=== PATIENT | male | born 1995 | race Caucasian/White ===

== ENCOUNTER 2017-03-01 13:27 | Inpatient (IN) | payer OTHER ==
[~2017-03-01] VITALS: Ht 175.2 cm; Wt 72.6 kg
--- NOTE | ~2017-03-01 | EKG ---
[place], [place] ELECTROCARDIOGRAM REPORT NAME: JUVENTINO HARRINGTON UNIT #: [id number] ROOM: 401 DOCTOR: ECHO KESSLER MD BIRTHDATE: [birth year] DOS: 03/01/2017 TIME: 1352 hours. Normal sinus rhythm at 60 beats per minute. The tracing is normal. No previous tracing is available for comparison. ECHO KESSLER MD CM:EKGRPT:ELECTROCARDIOGRAM REPORT [id number] ECHO KESSLER MD
[~2017-03-01 13:27] MED LIST: ATARAX25 MG PO; PREDNICOT20 MG PO
[2017-03-01 13:38] VITALS: BP 130/76
[2017-03-01 14:02] LABS: BASO # 0.1 10*3/uL (0.0-0.1); EOS # 0.5 10*3/uL (0.0-0.4); EOS % 4.5 % (1.0-4.0); HEMATOCRIT 42.8 % (42.0-52.0); HEMOGLOBIN 14.4 g/dl (14.0-18.0); LYMPH # 3.1 10*3/uL (1.3-4.4); LYMPH % 28.4 % (27.0-41.0); MEAN CELL VOLUME 90.5 fl (80.0-94.0); MEAN CORPUSCULAR HGB 30.4 pg (27.0-31.0); MEAN CORPUSCULAR HGB CONC 33.6 g/dl (33.0-37.0); MEAN PLATELET VOLUME 10.8 fl (9.6-12.3); MONO # 0.8 10*3/uL (0.1-1.0); MONO % 7.6 % (3.0-9.0); NEUT # 6.4 10*3/uL (2.3-7.9); NEUT % 58.2 % (47.0-73.0); PLATELET COUNT AUTOMATED 222 10*3/uL (130-400); RED BLOOD COUNT 4.73 10*6/uL (4.50-5.90); RED CELL DISTRI WIDTH 12.9 % (0-14.5)
[2017-03-01 14:16] LABS: ALBUMIN 3.7 gm/dl (3.1-4.5); ALKALINE PHOSPHATASE 70 U/L (45-117); BILIRUBIN, TOTAL 0.4 mg/dl (0.2-1.0); BUN 8 mg/dl (7-24); CARBON DIOXIDE 29 mmol/L (21-32); CHLORIDE 110 mmol/L (98-107); EST GLOM FILT AFRICAN AMERICAN > 60 ml/min; GLUCOSE 91 mg/dL (65-99); SGOT/AST 15 IU/L (3-35); SGPT/ALT 18 U/L (12-78); SODIUM 143 mmol/L (136-145); TOTAL PROTEIN 6.6 gm/dL (6.4-8.2)
[2017-03-01 14:34] LABS: URINE AMPHETAMINES < 1000 (1000ng/ml); URINE BARBITURATES < 200 (200ng/ml); URINE COCAINE < 300 (300ng/ml)
[2017-03-01 16:42] VITALS: BP 133/69
[2017-03-01 20:00] VITALS: BP 124/51
[2017-03-02] VITALS: BP 107/57
[2017-03-02 04:00] VITALS: BP 108/56
[2017-03-02 08:00] VITALS: BP 101/48
[2017-03-02 12:00] VITALS: BP 103/53
[2017-03-02 16:00] VITALS: BP 104/48
[2017-03-02 20:00] VITALS: BP 106/58
[2017-03-03] VITALS: BP 103/45
[2017-03-03 08:00] VITALS: BP 115/57
[2017-03-03 12:00] VITALS: BP 114/48
[2017-03-03 16:00] VITALS: BP 100/44
[2017-03-03 20:00] VITALS: BP 136/40
[2017-03-04] VITALS: BP 123/62
[2017-03-04 06:23] LABS: BASO # 0.1 10*3/uL (0.0-0.1); BASO % 0.8 % (0.0-1.0); EOS # 0.7 10*3/uL (0.0-0.4); EOS % 6.8 % (1.0-4.0); HEMATOCRIT 40.6 % (42.0-52.0); HEMOGLOBIN 13.4 g/dl (14.0-18.0); LYMPH # 3.9 10*3/uL (1.3-4.4); LYMPH % 40.1 % (27.0-41.0); MEAN CELL VOLUME 92.1 fl (80.0-94.0); MEAN CORPUSCULAR HGB 30.4 pg (27.0-31.0); MEAN PLATELET VOLUME 11.3 fl (9.6-12.3); MONO # 0.7 10*3/uL (0.1-1.0); MONO % 7.2 % (3.0-9.0); NEUT # 4.3 10*3/uL (2.3-7.9); NEUT % 44.9 % (47.0-73.0); PLATELET COUNT AUTOMATED 184 10*3/uL (130-400); RED BLOOD COUNT 4.41 10*6/uL (4.50-5.90); RED CELL DISTRI WIDTH 12.7 % (0-14.5); WHITE BLOOD COUNT 9.6 10*3/uL (4.8-10.8)
[2017-03-04 06:53] LABS: EST GLOM FILT AFRICAN AMERICAN > 60 ml/min
[2017-03-04 08:00] VITALS: BP 106/48
[2017-03-04] MEDS ORDERED: ATARAX,VISTARIL50 MG PO (13:28)
[2017-03-04] MEDS ORDERED: CHLORDIAZEPOXID25 M1 PO (13:28)
[2017-03-04] MEDS ORDERED: ZOFRAN 4 MG ED2 TAB PO (13:28)
[2017-03-04] MEDS ORDERED: ROPINIROLE HYD0.5 MG PO (13:28)
== END 2017-03-04 14:17 | disposition home or self-care (01) | DRG 897 ==
LOC: ED 13:27 → EDHOLD 13:53 → 4E 13:53
PROVIDERS: Internal Medicine; Student in an Organized Health Care Education/Training Program
DX: F11.23 Opioid dependence with withdrawal (principal); E87.8 Other disorders of electrolyte and fluid balance, not elsewhere classified; F31.9 Bipolar disorder, unspecified; F41.9 Anxiety disorder, unspecified; R00.1 Bradycardia, unspecified; G25.81 Restless legs syndrome; L40.9 Psoriasis, unspecified; F90.9 Attention-deficit hyperactivity disorder, unspecified type; F17.200 Nicotine dependence, unspecified, uncomplicated; Z71.6 Tobacco abuse counseling

== ENCOUNTER 2017-03-05 16:31 | Emergency (ER) | payer OTHER ==
[~2017-03-05] VITALS: Wt 72.1 kg
[~2017-03-05 16:31] MED LIST changes: +ATARAX,VISTARIL50 MG PO; +CHLORDIAZEPOXID25 M1 PO; +ROPINIROLE HYD0.5 MG PO; +ZOFRAN 4 MG ED2 TAB PO
[2017-03-05 18:43] LABS: BASO # 0.1 10*3/uL (0.0-0.1); BASO % 0.9 % (0.0-1.0); EOS # 0.8 10*3/uL (0.0-0.4); EOS % 6.8 % (1.0-4.0); HEMATOCRIT 44.5 % (42.0-52.0); LYMPH # 3.6 10*3/uL (1.3-4.4); LYMPH % 30.7 % (27.0-41.0); MEAN CELL VOLUME 90.6 fl (80.0-94.0); MEAN CORPUSCULAR HGB 30.5 pg (27.0-31.0); MEAN CORPUSCULAR HGB CONC 33.7 g/dl (33.0-37.0); MEAN PLATELET VOLUME 10.2 fl (9.6-12.3); MONO # 0.9 10*3/uL (0.1-1.0); MONO % 7.3 % (3.0-9.0); NEUT # 6.3 10*3/uL (2.3-7.9); NEUT % 54.1 % (47.0-73.0); PLATELET COUNT AUTOMATED 196 10*3/uL (130-400); RED BLOOD COUNT 4.91 10*6/uL (4.50-5.90); RED CELL DISTRI WIDTH 12.8 % (0-14.5); WHITE BLOOD COUNT 11.6 10*3/uL (4.8-10.8)
[2017-03-05 18:58] LABS: ALBUMIN 4.2 gm/dl (3.1-4.5); ALKALINE PHOSPHATASE 57 U/L (45-117); BILIRUBIN, TOTAL 0.3 mg/dl (0.2-1.0); BUN 11 mg/dl (7-24); CARBON DIOXIDE 32 mmol/L (21-32); CHLORIDE 104 mmol/L (98-107); EST GLOM FILT AFRICAN AMERICAN > 60 ml/min; GLUCOSE 93 mg/dL (65-99); POTASSIUM 4.3 mmol/L (3.5-5.1); SGOT/AST 22 IU/L (3-35); SGPT/ALT 25 U/L (12-78); SODIUM 142 mmol/L (136-145); TOTAL PROTEIN 7.4 gm/dL (6.4-8.2)
[2017-03-05 19:41] LABS: BILIRUBIN NEGATIVE (NEGATIVE); BLOOD NEGATIVE (NEGATIVE); COLOR YELLOW (YELLOW); GLUCOSE NEGATIVE (NEGATIVE); KETONE NEGATIVE (NEGATIVE); LEUKO ESTERASE NEGATIVE (NEGATIVE); NITRITE NEGATIVE (NEGATIVE); PH 7.5 (5.0-9.0); PROTEIN NEGATIVE (NEGATIVE); SPECIFIC GRAVITY <= 1.005 (1.005-1.030); UROBILINOGEN 0.2 E.U./dl (0.2-1.0)
[2017-03-05 19:49] LABS: URINE AMPHETAMINES < 1000 (1000ng/ml); URINE BARBITURATES < 200 (200ng/ml); URINE COCAINE < 300 (300ng/ml)
[2017-03-05 20:11] LABS: BACTERIA TRACE; CLARITY CLEAR (CLEAR); URINE REFLEX COMMENT NO (NO)
== END 2017-03-05 20:34 | disposition home or self-care (01) ==
LOC: ED 16:31
PROVIDERS: Emergency Medicine
DX: F39 Unspecified mood [affective] disorder (principal); F41.9 Anxiety disorder, unspecified; F31.9 Bipolar disorder, unspecified; F90.9 Attention-deficit hyperactivity disorder, unspecified type; F17.200 Nicotine dependence, unspecified, uncomplicated; F12.10 Cannabis abuse, uncomplicated; Z79.899 Other long term (current) drug therapy

== ENCOUNTER → 2017-04-26 | Outpatient (CLI) | payer OTHER ==
[2017-04-26 09:55] LABS: ALBUMIN 4.1 gm/dl (3.1-4.5); ALKALINE PHOSPHATASE 56 U/L (45-117); BILIRUBIN, DIRECT < 0.1 mg/dL (0.0-0.2); BILIRUBIN, TOTAL 0.5 mg/dl (0.2-1.0); SGOT/AST 15 IU/L (3-35); SGPT/ALT 19 U/L (12-78); TOTAL PROTEIN 7.5 gm/dL (6.4-8.2)
== END | disposition home or self-care (01) ==
LOC: LAB 08:42
PROVIDERS: Family Medicine
DX: F11.20 Opioid dependence, uncomplicated (principal)

== ENCOUNTER 2018-01-06 15:28 | Emergency (ER) | payer OTHER ==
[~2018-01-06] VITALS: Ht 175.2 cm; Wt 68.0 kg
== END 2018-01-06 15:43 | disposition home or self-care (01) ==
LOC: ED 15:28
DX: S09.8XXA Other specified injuries of head, initial encounter (principal); F17.200 Nicotine dependence, unspecified, uncomplicated; F10.10 Alcohol abuse, uncomplicated; Y04.0XXA Assault by unarmed brawl or fight, initial encounter; Y93.89 Activity, other specified; Y92.89 Other specified places as the place of occurrence of the external cause; Y99.8 Other external cause status

== ENCOUNTER 2018-02-13 22:46 | Emergency (ER) | payer OTHER ==
[~2018-02-13] VITALS: Ht 175.2 cm; Wt 68.0 kg
[2018-02-13] MEDS ORDERED: FLONASE ALLERG9.9 ML NAS (23:22)
== END 2018-02-13 23:24 | disposition home or self-care (01) ==
LOC: ED 22:46
DX: J32.9 Chronic sinusitis, unspecified (principal); F10.10 Alcohol abuse, uncomplicated

== ENCOUNTER 2018-03-01 16:29 | Emergency (ER) | payer OTHER ==
[~2018-03-01] VITALS: Wt 72.6 kg
[~2018-03-01 16:29] MED LIST changes: +FLONASE ALLERG9.9 ML NAS
[2018-03-01] MEDS ORDERED: ZOFRAN4 MG PO (16:45)
== END 2018-03-01 16:52 | disposition home or self-care (01) ==
LOC: ED 16:29
DX: B34.9 Viral infection, unspecified (principal); R03.0 Elevated blood-pressure reading, without diagnosis of hypertension; F17.200 Nicotine dependence, unspecified, uncomplicated; F11.10 Opioid abuse, uncomplicated; F12.10 Cannabis abuse, uncomplicated; G25.81 Restless legs syndrome; Z98.890 Other specified postprocedural states; Z79.899 Other long term (current) drug therapy

== ENCOUNTER 2018-08-29 15:17 | Emergency (ER) | payer SELFPAY ==
[~2018-08-29] VITALS: Ht 175.2 cm; Wt 81.6 kg
[~2018-08-29 15:17] MED LIST changes: +ZOFRAN4 MG PO
== END 2018-08-29 17:02 | disposition home or self-care (01) ==
LOC: ED 15:17
DX: R11.2 Nausea with vomiting, unspecified (principal); F17.210 Nicotine dependence, cigarettes, uncomplicated; F12.90 Cannabis use, unspecified, uncomplicated